=== PATIENT | male | born 1935 | race Caucasian/White ===

== ENCOUNTER 2019-02-28 10:04 | Day surgery (SDC) | payer MEDICARE ==
[2019-02-26 11:49] VITALS: BMI 24.3
[~2019-02-28 10:04] MED LIST: LACTATED RINGERS 1,000 ML IV SCH; LIDOCAINE 1% 20 ML VIAL (10MG/ML) FOR IV START INTRADERMA PRN; MOXIFLOXACIN HCL 0.5% DROPS 3 ML BTL OP NR; PILOCARPINE 2% OPHTH DROPS 15 ML BTL OP NR; TETRACAINE 0.5% OPHTH (PF) DROPS 4 ML BTL OP NR; TIMOLOL 0.5% OPHTH DROPS 5 ML BTL OP NR
[2019-02-28 10:49] VITALS: RESP 16; TEMP 98
[2019-02-28] MEDS ORDERED: MIDAZOLAM 2 MG/2 ML VIAL ONE (11:48)
[2019-02-28] MEDS ORDERED: fentaNYL (PF) 50 MCG/ML 2 ML AMP ONE (11:48)
[2019-02-28] MEDS ORDERED: BALANCED SALT IRRIG SOLN COMB2 15 ML IRRIG.SOLN IRRIGATION ONE (11:56)
[2019-02-28] MEDS ORDERED: TRYPAN BLUE 0.06% SYRINGE 0.5 ML SYRINGE INTRAOCULA ONE (11:57)
[2019-02-28] MEDS ORDERED: LIDOCAINE (PF) 10 MG/ML 5ML AMP SQ ONE (12:01)
--- NOTE | 2019-02-28 12:27 | P.OP ---
Date of Procedure: 02/28/19 Preoperative Diagnosis: POAG severe stage Postoperative Diagnosis: same Procedure(s) Performed: goniotomy right eye Implants: none Anesthesia: MAC Surgeon: Ian Parada Pathology: none sent Condition: stable Disposition: same day Indications for Procedure: poorly controlled glaucoma Operative Findings: no complications
[2019-02-28 12:32] VITALS: BP 156/61
[2019-02-28 12:43] VITALS: PULSE 66
--- NOTE | 2019-02-28 22:05 | OP ---
OPERATIVE REPORT DATE OF SURGERY: February 28, 2019. PROCEDURE PERFORMED: Goniotomy of the right eye. PREOPERATIVE DIAGNOSIS: Primary open-angle glaucoma, severe stage. POSTOPERATIVE DIAGNOSIS: Primary open angle glaucoma, severe stage. SURGEON: Dr. Ian Parada. ANESTHESIA: Topical. ESTIMATED BLOOD LOSS: Approximately 5 mL. SPECIMEN: Taken none. NARRATIVE: After obtaining the appropriate consent, the patient was brought to the operating room. There he was placed under cardiac monitoring, prepped and draped in the usual sterile manner. He was approached from his right temporal side. A single 2.5 mm keratome incision was made at the 9 o'clock position. Through this opening, 1% Xylocaine MPF 50/50 mix with balanced salt solution was injected into the anterior chamber. This was followed by installation of trypan blue which was left in place for approximately 1 minute. This was irrigated away with balanced salt solution and Viscoat was used to stabilize the anterior chamber as well as lubricate the epithelial surface of the cornea. The patient was then asked to rotate his head approximately 45 degrees to his left and using a gonio prism the trabecular meshwork was identified. A [employer] dual blade goniotomy knife was used to remove the trabecular meshwork utilizing a gold and meet method. A moderate amount of blood was identified and irrigated from the anterior chamber with the irrigation aspiration as well as removing the Viscoat from the anterior chamber. The temporal incision demonstrated some incompetence and therefore a single 10-0 nylon suture in an X fashion was used to ensure proper closure without leakage from the incision site. The eye was brought to approximately 30 mmHg by palpation with balanced salt solution which was instilled through the temporal incision. He then received 2 drops of 0.5% timolol followed by 2 drops of 1% pilocarpine as well as 2 drops of moxifloxacin. He was then lightly patched and shielded in the usual manner. There were no complications from the procedure. He tolerated the procedure well, was returned to outpatient recovery in good condition. MMODL / IJN: [id number] /
== END 2019-02-28 13:58 | disposition home or self-care (01) ==
LOC: OR 10:04
PROVIDERS: ATTEND Ophthalmology
DX: H40.1113 Primary open-angle glaucoma, right eye, severe stage (principal); H35.30 Unspecified macular degeneration; H47.393 Other disorders of optic disc, bilateral; H04.123 Dry eye syndrome of bilateral lacrimal glands; I10 Essential (primary) hypertension; E78.00 Pure hypercholesterolemia, unspecified; F32.9 Major depressive disorder, single episode, unspecified; M10.9 Gout, unspecified; E78.5 Hyperlipidemia, unspecified; F41.9 Anxiety disorder, unspecified; R41.3 Other amnesia; Z96.1 Presence of intraocular lens; Z85.820 Personal history of malignant melanoma of skin; Z79.899 Other long term (current) drug therapy; Z87.891 Personal history of nicotine dependence; Z98.890 Other specified postprocedural states
CPT/HCPCS: 65820; J2250; J2001; J3010

== ENCOUNTER → 2020-04-29 | Outpatient (CLI) | payer MEDICARE, BC ==
--- NOTE | 2020-04-29 10:34 | CT ---
EXAMINATION TYPE: CT abdomen pelvis w con DATE OF EXAM: 04/29/2020 COMPARISON: None. HISTORY: follow up prostate cancer CT DLP: 840 mGycm, Automated Exposure Control for Dose Reduction was Utilized. CONTRAST: CT scan of the abdomen and pelvis is performed with oral and with IV Contrast, patient injected with 80 mL of Isovue 300. FINDINGS: LUNG BASES: No significant abnormality is appreciated. LIVER/GB: No significant abnormality is appreciated. PANCREAS: No significant abnormality is seen. SPLEEN: No significant abnormality is seen. ADRENALS: No significant abnormality is seen. KIDNEYS: Symmetric cortical medullary uptake and excretion without hydronephrosis seen bilaterally. T here are simple appearing thin-walled cysts upper pole available both kidneys. BOWEL: Oral contrast reaches level of the rectum. No suspicious small or large bowel dilatation. PROSTATE/SEMINAL VESICLES: Surgical clips bilateral pelvis. Prostate not well seen and may be surgica lly absent. LYMPH NODES: No greater than 1cm abdominal or pelvic lymph nodes are appreciated. OSSEOUS STRUCTURES: Metallic hardware from bilateral hip arthroplasty causes streak artifact limiting evaluation of pelvic structures. Grade 1 retrolisthesis L2 on L3 and L3 on L4. Posterior disc hernia tions L2-L3 and L4-L5 levels effaces anterior thecal sac sagittal image 35. Multilevel facet arthropa thy mid to lower lumbar spine. Moderate multilevel spurring in the spine. Underlying scoliotic curv ature in the lumbar spine. OTHER: There is ventral wall incisional hernia containing nondilated contrast filled small bowel loop coronal image 8 just below small fat-containing umbilical hernia. There is moderate atherosclerotic and ectatic abdominal aorta without definitive greater than 3.0 cm aneurysm. IMPRESSION: No suspicious mass or adenopathy to suggest metastatic disease.
--- NOTE | 2020-04-29 14:09 | NM ---
EXAMINATION TYPE: NM bone scan whole body DATE OF EXAM: 04/29/2020 COMPARISON: 04/29/2000 HISTORY: Prostate cancer Delayed whole-body scanning was performed following the injection of 23.3 mCi Tc 99m MDP. Images acq uired 4.5 hours post injection. FINDINGS: Abnormal uptake involving the posterior left mid rib cage and anterior left lower rib cage noted. Foc al area of increased uptake involving the anterior lower right rib cage. Abnormal uptake involving th e neck on the right. Abnormal uptake seen throughout the lower and mid lumbar spine. Abnormal uptake involving the shoulders noted. IMPRESSION: 1. Abnormal uptake involving the rib cage appears sclerotic on recent CT scan and suggestive of metas tases. 2. Abnormal uptake involving the vertebral column compatible with severe multilevel degenerative disc disease. 3. Nonspecific uptake involving the cervical spine. Correlate with x-ray as clinically warranted.
== END | disposition home or self-care (01) ==
LOC: RADCTMAIN 08:08
PROVIDERS: ATTEND Urology
DX: C61 Malignant neoplasm of prostate (principal); R93.7 Abnormal findings on diagnostic imaging of other parts of musculoskeletal system
CPT/HCPCS: 82565; 84520; 74177; 36415; 78306; A9503; Q9967

== ENCOUNTER 2021-11-02 14:04 | Emergency (ER) | payer MEDICARE ==
[2021-11-02 14:12] VITALS: RESP 18; TEMP 97.9
--- NOTE | 2021-11-02 15:55 | ED ---
Altered Mental Status HPI - General Source: patient, family, RN notes reviewed Mode of arrival: ambulatory - History of Present Illness MD Complaint: altered mental status, weakness Onset/Timin -: days(s) <Julianne Hsu - Last Filed: 11/02/21 21:06> <Rickey Jaime - Last Filed: 11/04/21 00:51> - General Chief Complaint: Altered Mental Status Stated Complaint: AMS Time Seen by Provider: 11/02/21 15:28 - History of Present Illness Initial Comments: This is an 86-year-old male who presents to the emergency department for altered mental status and weakness. Patient's and son state for the last 2-3 days, he has seemed very fatigued and unlike himself. He does have a past medical history of dementia. Over these last 2-3 days, he has been sleeping much more than normal and having uncontrolled bowel and bladder movements. Overall he does not seem like himself. His called the office of his primary care provider, Dr. Miner, who instructed the patient to come to the emergency department. Patient currently denies any pain, but states that he does feel weak. Denies any fevers, chills, sore throat, cough, dyspnea, chest pain, palpitations, abdominal pain, nausea, vomiting, diarrhea, back pain, or headaches. (Julianne Hsu) - Related Data Home Medications Medication Instructions Recorded Confirmed allopurinoL [Zyloprim] 100 mg PO DAILY 02/26/19 11/02/21 Losartan/Hydrochlorothiazide 1 tab PO DAILY 11/02/21 11/02/21 [Hyzaar 100-12.5 Tablet] Metoprolol Succinate (ER) [Toprol 50 mg PO BID 11/02/21 11/02/21 Xl] Rivastigmine Tartrate [Exelon] 3 mg PO BID 11/02/21 11/02/21 Timolol 0.5% Ophth Soln [Timoptic 1 drop BOTH EYES BID 11/02/21 11/02/21 0.5% Ophth Soln] Previous Rx's Medication Instructions Recorded Nirmatrelvir/Ritonavir [Paxlovid 1 each PO BID 5 Days #10 each 11/02/21 150-100 mg Pack (Eua)] Allergies Allergy/AdvReac Type Severity Reaction Status Date / Time No Known Allergies Allergy Verified 11/02/21 17:50 Review of Systems ROS Other: All systems not noted in ROS Statement are negative. <Julianne Hsu - Last Filed: 11/02/21 21:06> ROS Other: All systems not noted in ROS Statement are negative. <Rickey Jaime - Last Filed: 11/04/21 00:51> ROS Statement: Those systems with pertinent positive or pertinent negative responses have been documented in the HPI. Past Medical History Past Medical History: Cancer, Dementia, Hypertension Additional Past Medical History / Comment(s): prostate cancer History of Any Multi-Drug Resistant Organisms: None Reported Past Surgical History: Bowel Resection, Orthopedic Surgery, Prostate Surgery Past Psychological History: No Psychological Hx Reported Smoking Status: Former smoker Past Alcohol Use History: Rare Past Drug Use History: None Reported <Julianne Hsu - Last Filed: 11/02/21 21:06> General Exam General appearance: alert, in no apparent distress Head exam: Present: atraumatic, normocephalic, normal inspection Respiratory exam: Present: normal lung sounds bilaterally. Absent: respiratory distress, wheezes, rales, rhonchi, stridor Cardiovascular Exam: Present: normal rhythm, tachycardia. Absent: systolic murmur, diastolic murmur GI/Abdominal exam: Present: soft, hyperactive bowel sounds. Absent: distended, tenderness, guarding, rebound, rigid Neurological exam: Present: alert, oriented X3, CN II-XII intact Psychiatric exam: Present: normal affect, normal mood Skin exam: Present: warm, dry, intact, normal color. Absent: rash <Julianne Hsu - Last Filed: 11/02/21 21:06> Course Vital Signs 11/02/21 11/02/21 11/02/21 14:06 17:00 18:41 Temperature 97.9 F Pulse Rate 123 H 76 73 Respiratory 18 18 18 Rate Blood Pressure 119/77 140/78 O2 Sat by Pulse 92 L 93 L 94 L Oximetry Medical Decision Making - Lab Data Result diagrams: 11/02/21 15:55 11/02/21 15:55 - Radiology Data Radiology results: report reviewed, image reviewed <Julianne Hsu - Last Filed: 11/02/21 21:06> - Lab Data Result diagrams: 11/02/21 15:55 11/02/21 15:55 <Rickye Jaime - Last Filed: 11/04/21 00:51> - Medical Decision Making This is an 86-year-old male who presents to the emergency department for weakness. Chest x-ray obtained revealing no acute cardiopulmonary process. Urinalysis negative for signs of infection. Patient positive for COVID-19. Patient has an elevated troponin, most likely secondary to COVID-19. EKG reveals no signs of ischemia and the patient is not complaining of any chest pain or shortness of breath, additionally, the patient has no history of cardiac or pulmonary problems. These findings were discussed with the family, in that if they do not feel like they're able to care for him in his current state, we can admit him for observation. Patient requests discharge home and his family states that they're able to care for him. Patient's medication list reviewed, and he does not have any contraindications to Paxlovid. Prescription for Paxlovid provided. He is instructed to quarantine for 5 days and practice extra precautions for an additional 5 days, including always wearing a mask around others and avoiding travel. Return precautions reviewed in depth, the patient is instructed to return to the emergency department with any new, worsening, or concerning symptoms. Patient verbalized understanding. This case was discussed in detail with the attending ED physician. Presentation, findings, and treatment plan discussed in detail as well. (Julianne Hsu) Patient's family would like to take the patient home. Troponin is likely secondary to the covid 19 infection, as the patient has no chest pain and no signs of acs on ekg. Joint decision making was made to discharge the patient home with strict return precautions. Precautions were discussed. (Rickey Jaime) - Lab Data Lab Results 11/02/21 11/02/21 11/02/21 Range/Units 15:55 15:55 15:55 WBC 6.7 (3.8-10.6) k/uL RBC 4.34 (4.30-5.90) m/uL Hgb 13.8 (13.0-17.5) gm/dL Hct 40.9 (39.0-53.0) % MCV 94.3 (80.0-100.0) fL MCH 31.7 (25.0-35.0) pg MCHC 33.6 (31.0-37.0) g/dL RDW 12.9 (11.5-15.5) % Plt Count 161 (150-450) k/uL MPV 7.5 Neutrophils % 76 % Lymphocytes % 11 % Monocytes % 11 % Eosinophils % 0 % Basophils % 1 % Neutrophils # 5.1 (1.3-7.7) k/uL Lymphocytes # 0.7 L (1.0-4.8) k/uL Monocytes # 0.7 (0-1.0) k/uL Eosinophils # 0.0 (0-0.7) k/uL Basophils # 0.0 (0-0.2) k/uL PT 11.8 (9.0-12.0) sec INR 1.1 (<1.2) APTT 25.0 (22.0-30.0) sec Sodium 133 L (137-145) mmol/L Potassium 3.4 L (3.5-5.1) mmol/L Chloride 95 L (98-107) mmol/L Carbon Dioxide 22 (22-30) mmol/L Anion Gap 16 mmol/L BUN 25 H (9-20) mg/dL Creatinine 1.19 (0.66-1.25) mg/dL Est GFR (CKD-EPI)AfAm 64 (>60 ml/min/1.73 sqM) Est GFR (CKD-EPI)NonAf 55 (>60 ml/min/1.73 sqM) Glucose 121 H (74-99) mg/dL Calcium 9.2 (8.4-10.2) mg/dL Magnesium 1.7 (1.6-2.3) mg/dL Total Bilirubin 0.6 (0.2-1.3) mg/dL AST 41 (17-59) U/L ALT 14 (4-49) U/L Alkaline Phosphatase 276 H (38-126) U/L Troponin I (0.000-0.034) ng/mL Total Protein 6.7 (6.3-8.2) g/dL Albumin 4.1 (3.5-5.0) g/dL Urine Color Urine Appearance (Clear) Urine pH (5.0-8.0) Ur Specific [employer] (1.001-1.035) Urine Protein (Negative) Urine Glucose (UA) (Negative) Urine Ketones (Negative) Urine Blood (Negative) Urine Nitrite (Negative) Urine Bilirubin (Negative) Urine Urobilinogen (<2.0) mg/dL Ur Leukocyte Esterase (Negative) Urine RBC (0-5) /hpf Urine WBC (0-5) /hpf Ur Squamous Epith Cells (0-4) /hpf Urine Bacteria (None) /hpf Hyaline Casts (0-2) /lpf Urine Mucus (None) /hpf Coronavirus (PCR) (Not Detectd) 11/02/21 11/02/21 11/02/21 Range/Units 15:55 15:55 17:00 WBC (3.8-10.6) k/uL RBC (4.30-5.90) m/uL Hgb (13.0-17.5) gm/dL Hct (39.0-53.0) % MCV (80.0-100.0) fL MCH (25.0-35.0) pg MCHC (31.0-37.0) g/dL RDW (11.5-15.5) % Plt Count (150-450) k/uL MPV Neutrophils % % Lymphocytes % % Monocytes % % Eosinophils % % Basophils % % Neutrophils # (1.3-7.7) k/uL Lymphocytes # (1.0-4.8) k/uL Monocytes # (0-1.0) k/uL Eosinophils # (0-0.7) k/uL Basophils # (0-0.2) k/uL PT (9.0-12.0) sec INR (<1.2) APTT (22.0-30.0) sec Sodium (137-145) mmol/L Potassium (3.5-5.1) mmol/L Chloride (98-107) mmol/L Carbon Dioxide (22-30) mmol/L Anion Gap mmol/L BUN (9-20) mg/dL Creatinine (0.66-1.25) mg/dL Est GFR (CKD-EPI)AfAm (>60 ml/min/1.73 sqM) Est GFR (CKD-EPI)NonAf (>60 ml/min/1.73 sqM) Glucose (74-99) mg/dL Calcium (8.4-10.2) mg/dL Magnesium (1.6-2.3) mg/dL Total Bilirubin (0.2-1.3) mg/dL AST (17-59) U/L ALT (4-49) U/L Alkaline Phosphatase (38-126) U/L Troponin I 0.069 H* (0.000-0.034) ng/mL Total Protein (6.3-8.2) g/dL Albumin (3.5-5.0) g/dL Urine Color Yellow Urine Appearance Clear (Clear) Urine pH 5.5 (5.0-8.0) Ur Specific [employer] 1.022 (1.001-1.035) Urine Protein 1+ H (Negative) Urine Glucose (UA) Negative (Negative) Urine Ketones 1+ H (Negative) Urine Blood Negative (Negative) Urine Nitrite Negative (Negative) Urine Bilirubin Negative (Negative) Urine Urobilinogen <2.0 (<2.0) mg/dL Ur Leukocyte Esterase Negative (Negative) Urine RBC 1 (0-5) /hpf Urine WBC 1 (0-5) /hpf Ur Squamous Epith Cells 1 (0-4) /hpf Urine Bacteria Rare H (None) /hpf Hyaline Casts 37 H (0-2) /lpf Urine Mucus Occasional H (None) /hpf Coronavirus (PCR) Detected A (Not Detectd) - EKG Data EKG Comments: Junctional tachycardia. ST deviation and moderate T-wave abnormality. Ventricular rate 112 bpm, [place] interval 119 ms, QRS duration 77 ms, QTC 381 ms. (Julianne Hsu) Disposition Is patient prescribed a controlled substance at d/c from ED?: No <Julianne Hsu - Last Filed: 11/02/21 21:06> <Rickey Jaime - Last Filed: 11/04/21 00:51> Clinical Impression: COVID-19 Disposition: HOME SELF-CARE Instructions (If sedation given, give patient instructions): COVID-19 (Coronavirus Disease 2019) (ED), Safely Care for Someone Who Has COVID-19 (ED), How to Recover from COVID-19 at Home (ED) Additional Instructions: Return to the emergency department with any new, worsening, or concerning symptoms. Take the Paxlovid as prescribed for 5 days. You will need to quarantine for 5 days and practice extra precautions for an additional 5 days, including always wearing a mask around others and avoiding travel. Make sure that you remain well-hydrated and get plenty of rest. Prescriptions: Nirmatrelvir/Ritonavir [Paxlovid 150-100 mg Pack (Eua)] 1 each PO BID 5 Days #10 each Referrals: Deandre Miner MD [Primary Care Provider] - 1-2 days
--- NOTE | 2021-11-02 16:18 | XR ---
EXAMINATION TYPE: XR chest 2V DATE OF EXAM: 11/02/2021 COMPARISON: NONE HISTORY: Altered mental status and weakness. TECHNIQUE: Frontal and lateral views of the chest are obtained. FINDINGS: There is chronic parenchymal change bilaterally without suspicious focal airspace opacity, pleural effusion, or pneumothorax seen. The cardiac silhouette size is within normal limits with at herosclerotic change in the thoracic aorta noted. Old fractures of the posterolateral right third thr ough sixth ribs is present. Possible 1.2 cm lateral left mid lung nodule projecting over the anterio r left fourth rib. Multilevel spurring of the thoracic spine. High riding humeral heads suggest chron ic rotator cuff tears. IMPRESSION: Chronic changes without acute pulmonary process. Possible lateral left mid lung nodule. Advise nonemergent chest CT follow-up to further evaluate.
[2021-11-02 16:32] LABS: Basophils % (A) 1 %; Eosinophils % (A) 0 %; HCT 40.9 % (39.0-53.0); HGB 13.8 gm/dL (13.0-17.5); Lymphocytes # (A) 0.7 k/uL (1.0-4.8); Lymphocytes % (A) 11 %; MCH 31.7 pg (25.0-35.0); MCHC 33.6 g/dL (31.0-37.0); MCV 94.3 fL (80.0-100.0); Mean Platelet Volume 7.5; Monocytes # (A) 0.7 k/uL (0-1.0); Monocytes % (A) 11 %; Neutrophils # (A) 5.1 k/uL (1.3-7.7); Neutrophils % (A) 76 %; Platelet Count 161 k/uL (150-450); RBC 4.34 m/uL (4.30-5.90); RDW 12.9 % (11.5-15.5); WBC 6.7 k/uL (3.8-10.6)
[2021-11-02 16:34] LABS: Albumin 4.1 g/dL (3.5-5.0); Calcium 9.2 mg/dL (8.4-10.2); Magnesium 1.7 mg/dL (1.6-2.3); Potassium 3.4 mmol/L (3.5-5.1); Total Bilirubin 0.6 mg/dL (0.2-1.3); Total Protein 6.7 g/dL (6.3-8.2)
[2021-11-02 16:39] LABS: INR 1.1 (<1.2); Prothrombin Time 11.8 sec (9.0-12.0)
[2021-11-02] MEDS ORDERED: SODIUM CHLORIDE 0.9% 1,000 ML IV STA (17:10)
[2021-11-02 17:14] VITALS: BP 140/78
[2021-11-02 17:41] LABS: Appearance,Urine Clear (Clear); Bacteria,Urine Rare /hpf; Bilirubin,Urine Negative (Negative); Blood,Urine Negative (Negative); Color,Urine Yellow; Glucose,Urine (UA) Negative (Negative); Hyaline Casts,Urine 37 /lpf (0-2); Ketones,Urine 1+ (Negative); Leukocyte Esterase,Urine Negative (Negative); Mucus,Urine Occasional /hpf; Nitrite,Urine Negative (Negative); PH, Urine 5.5 (5.0-8.0); Protein,Urine 1+ (Negative); RBC,Urine 1 /hpf (0-5); Specific Gravity,Urine 1.022 (1.001-1.035); Squamous Epithelial Cell,Urine 1 /hpf (0-4); Urobilinogen,Urine <2.0 mg/dL (<2.0); WBC,Urine 1 /hpf (0-5)
[2021-11-02 18:43] VITALS: PULSE 73
== END 2021-11-02 18:43 | disposition home or self-care (01) ==
LOC: EC 14:04
DX: U07.1 COVID-19 (principal); I10 Essential (primary) hypertension; F03.90 Unspecified dementia, unspecified severity, without behavioral disturbance, psychotic disturbance, mood disturbance, and anxiety; Z87.891 Personal history of nicotine dependence
CPT/HCPCS: 36415; 71046; 80053; 81001; 83735; 84484; 85025; 85610; 85730; 87635; 93005; 96360; 99285

== ENCOUNTER 2022-11-11 10:36 | Inpatient (IN) | payer MEDICARE ==
--- NOTE | 2022-11-11 13:07 | XR ---
EXAMINATION TYPE: XR Hip RT and AP Pelvis DATE OF EXAM: 11/11/2022 COMPARISON: NONE HISTORY: Pain TECHNIQUE: A single AP view of the pelvis is obtained. Two views of the right hip are obtained. FINDINGS: There is postsurgical change involving the right hip. There is diffuse osseous sclerosis c ompatible with widespread bony metastasis. Degenerative change of the spine. No definite acute fractu re. Surgical clips in the pelvis are noted. Vascular calcifications are seen. IMPRESSION: 1. Diffuse bony metastases. No definite acute fracture.
--- NOTE | 2022-11-11 13:10 | CT ---
EXAMINATION TYPE: CT brain ruby gonzales con DATE OF EXAM: 11/11/2022 COMPARISON: None HISTORY: AMS, fall CT DLP: 1603.[address] of the brain was performed. The ventricles, basal cisterns and sulci overlying the cerebral convexities demonstrate enlargement. There is no evidence for intracranial hemorrhage or sulcal effacement. There is decreased attenuatio n about the periventricular white matter and deep white matter of both cerebral hemispheres, compatib le with chronic small vessel ischemia. No mass effects are seen. If symptoms persist consider MRI. Osseous calvarium is intact. Sclerosis throughout the osseous calvarium compatible with metastatic di sease. IMPRESSION: 1. Age related atrophic and chronic small vessel ischemic change without acute intracranial process seen at this time. 2. 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 CT Cervical Spine: Unenhanced CT of the cervical spine was performed with bone and soft tissue window settings submitted . Coronal and sagittal reconstruction is obtained. There is normal alignment and prevertebral soft tissues. No evidence for acute cervical fracture . Severe Scattered degenerative disc disease and spondylosis. Sclerotic bony metastases noted throughou t. Moderate right-sided pleural effusion is partially imaged. IMPRESSION: 1. No evidence for acute fracture or subluxation of the cervical spine. 2. Findings compatible with bony metastatic disease.
--- NOTE | 2022-11-11 13:15 | CT ---
EXAMINATION TYPE: CT lumbar spine wo con DATE OF EXAM: 11/11/2022 1:04 PM COMPARISON: CT abdomen and pelvis 04/29/2020 HISTORY: pain from fall CT DLP: 699.1 mGycm Automated exposure control for dose reduction was used. Unenhanced CT of the lumbar spine was performed. Bone and soft tissue window settings are submitted as well as coronal and sagittal reconstructions. There is diffuse mixed lytic and blastic changes of all osseous structures compatible with widespread bone metastases. Hypertrophic arthropathy of the SI joints. There are bilateral sizable pleural effusions. Atherosclerotic change of aorta. Hypodensity within th e bilateral kidney measures fluid attenuation compatible with simple cyst. L1-L2: Normal disc space height. No disc herniation protrusion or central stenosis. No facet joint arthropathy. No evidence for foraminal encroachment. L2-L3: Retrolisthesis with circumferential disc bulging and ligamentum flavum hypertrophy. Vacuum dis c compatible severe degenerative disc disease. There is moderate canal stenosis and bilateral foramin al approach. L3-L4: Severe degenerative disc disease with retrolisthesis. Diffuse disc bulging, facet arthropathy and ligamentum hypertrophy with moderate to severe canal stenosis and bilateral foraminal approach. L4-L5: Broad-based disc protrusion or herniation with severe canal stenosis and bilateral foraminal e ncroachment. Facet arthropathy. L5-S1: Central disc bulging but no obvious canal stenosis. Mild neural foraminal. IMPRESSION: 1. Diffuse widespread bony metastasis with mixed Lytic and blastic changes involving virtually all osseous structures. 2. Multilevel disc protrusion or herniation with facet arthropathy and ligamentum flavum hypertrophy resulting in canal stenosis most marked at levels L2-3, L3-4 and L4-5. 3. Bilateral pleural effusion.
[2022-11-11] MEDS ORDERED: NALOXONE 0.4 MG/ML 1 ML VIAL IV PRN (15:05)
--- NOTE | 2022-11-11 15:05 | ED ---
Fall HPI - General Chief Complaint: Fall Stated Complaint: hip pain Time Seen by Provider: 11/11/22 12:07 Source: patient Mode of arrival: wheelchair - History of Present Illness Initial Comments: 87-year-old male presents to the emergency department from Dr. Miner's office. Patient had a fall last night due to weakness in his lower extremities. EMS had to come to the house to lift the patient up however he refused to go to the hospital. is power of civil litigation attorney. States that he has not been able to get up with his walker today due to the right hip and lower back pain. He was nonambulator and Dr. Miner's office. He does have known prostate cancer and concern was for fracture as well as inability to ambulate. Patient does have bilateral hip replacements. No other alleviating, precipitating or modifying factors - Related Data Home Medications Medication Instructions Recorded Confirmed ALPRAZolam [Xanax] 0.25 mg PO BID PRN 11/11/22 11/11/22 Losartan/Hydrochlorothiazide 1 tab PO DAILY 11/11/22 11/11/22 [Losartan-Hctz 100-12.5 mg Tab] Metoprolol Succinate (ER) [Toprol 25 mg PO HS 11/11/22 11/11/22 Xl] traMADol HCL 25 mg PO Q6H 11/11/22 11/11/22 Allergies Allergy/AdvReac Type Severity Reaction Status Date / Time No Known Allergies Allergy Verified 11/11/22 15:02 Review of Systems ROS Statement: Those systems with pertinent positive or pertinent negative responses have been documented in the HPI. ROS Other: All systems not noted in ROS Statement are negative. Past Medical History Past Medical History: Cancer, Dementia, Hypertension, Prostate Disorder Additional Past Medical History / Comment(s): prostate cancer History of Any Multi-Drug Resistant Organisms: None Reported Past Surgical History: Bowel Resection, Joint Replacement, Orthopedic Surgery, Prostate Surgery Additional Past Surgical History / Comment(s): bilateral hips Past Psychological History: No Psychological Hx Reported Smoking Status: Former smoker Past Alcohol Use History: None Reported Past Drug Use History: None Reported General Exam Limitations: altered mental status (Dementia) General appearance: alert, in no apparent distress Head exam: Present: atraumatic, normocephalic, normal inspection Eye exam: Present: normal appearance, PERRL, EOMI. Absent: scleral icterus, conjunctival injection, periorbital swelling ENT exam: Present: normal exam, mucous membranes moist Neck exam: Present: normal inspection. Absent: tenderness, meningismus, lymphadenopathy Respiratory exam: Present: normal lung sounds bilaterally. Absent: respiratory distress, wheezes, rales, rhonchi, stridor Cardiovascular Exam: Present: regular rate, normal rhythm, normal heart sounds. Absent: systolic murmur, diastolic murmur, rubs, gallop, clicks GI/Abdominal exam: Present: soft, normal bowel sounds. Absent: distended, tenderness, guarding, rebound, rigid Extremities exam: Present: full ROM, tenderness (Subjective tenderness to p alpation of the right hip), normal capillary refill. Absent: pedal edema, joint swelling, calf tenderness Back exam: Present: normal inspection Neurological exam: Present: alert, CN II-XII intact, other (Oriented to self) Psychiatric exam: Present: normal affect, normal mood Skin exam: Present: warm, dry, intact, normal color. Absent: rash Course Vital Signs 11/11/22 11/11/22 11/11/22 11:20 11:48 13:51 Temperature 97.7 F 97.5 F L Pulse Rate 84 68 76 Respiratory 18 16 20 Rate Blood Pressure 111/63 110/60 112/52 O2 Sat by Pulse 93 L 95 96 Oximetry 11/11/22 11/11/22 11/11/22 16:00 17:00 18:30 Temperature Pulse Rate 75 78 60 Respiratory 16 16 16 Rate Blood Pressure 110/60 110/68 105/60 O2 Sat by Pulse 98 98 99 Oximetry Medical Decision Making - Medical Decision Making Was pt. sent in by a medical professional or institution (, PA, SENIOR CATEGORY MANAGER, urgent care, hospital, or fpc...) When possible be specific @ -Yes patient was sent in by Dr. Miner's office Did you speak to anyone other than the patient for history (EMS, parent, family, police, friend...)? What history was obtained from this source @ -Spoke with Dr. Miner, and son Did you review nursing and triage notes (agree or disagree)? Why? @ -I reviewed and agree with nursing and triage notes Were old charts reviewed (outside hosp., previous admission, EMS record, old EKG, old radiological studies, urgent care reports/EKG's, fpc records)? Report findings @ -No old charts were reviewed Differential Diagnosis (chest pain, altered mental status, abdominal pain women, abdominal pain men, vaginal bleeding, weakness, fever, dyspnea, syncope, headache, dizziness, GI bleed, back pain, seizure, CVA, palpatations, mental health, musculoskeletal)? @ -Differential Musculoskeletal Muscular strain, contusion, ligament sprain, fracture, arthritis, septic arthritis, bursitis, cellulitis, muscle spasm, nerve compression, DVT, arterial occlusion, herpes zoster, electrolyte abnormality, tumor.... This is not meant to be in all inclusive list EKG interpreted by me (3pts min.). @ -Not done X-rays interpreted by me (1pt min.). @ -Yes and demonstrates no acute fracture. Significant prostate metastasis CT interpreted by me (1pt min.). @ -Yes and no acute intracranial process U/S interpreted by me (1pt. min.). @ -None done What testing was considered but not performed or refused? (CT, X-rays, U/S, labs)? Why? @ -None What meds were considered but not given or refused? Why? @ -None Did you discuss the management of the patient with other professionals (professionals i.e. , PA, SENIOR CATEGORY MANAGER, lab, RT, psych nurse, social media marketer, hand edge bander, teacher, founder and chief technical officer, immigration case worker)? Give summary @ -Spoke with Dr. Julian will admit the patient as family can no longer care for him Was smoking cessation discussed for >3mins.? @ -No Was critical care preformed (if so, how long)? @ -No Were there social determinants of health that impacted care today? How? (Homelessness, low income, unemployed, alcoholism, drug addiction, transportation, low edu. Level, literacy, decrease access to med. care, halfway, rehab)? @ -No Was there de-escalation of care discussed even if they declined (Discuss DNR or withdrawal of care, Hospice)? DNR status @ -No What co-morbidities impacted this encounter? (DM, HTN, Smoking, COPD, CAD, Cancer, CVA, ARF, Chemo, Hep., AIDS, mental health diagnosis, sleep apnea, morbid obesity)? @ -Dementia, prostate cancer with bony metastases Was patient admitted / discharged? Hospital course, mention meds given and route, prescriptions, significant lab abnormalities, going to OR and other pertinent info. @ -Admitted. Upon arrival patient placed into bed 18. History and physical exam was performed. X-ray is performed of the patient's right hip and pelvis. CT performed of his head and cervical spine as well as his lumbar spine. No acute fractures from falling. Discuss the results with the family. They no longer can care for the patient at home due to his profound weakness in his lower extremities. Patient will be admitted to Dr. Julian with case management, PT and OT on consult. Family was agreeable to this and patient was taken to the floor in stable condition Undiagnosed new problem with uncertain prognosis? @ -No Drug Therapy requiring intensive monitoring for toxicity (Heparin, Nitro, Insulin, Cardizem)? @ -No Were any procedures done? @ -No Diagnosis/symptom? @ -Acute fall, acute lower extremity weakness, right hip pain, lumbar back pain, prostate cancer with bony metastases Acute, or Chronic, or Acute on Chronic? @ -Acute Uncomplicated (without systemic symptoms) or Complicated (systemic symptoms)? @ -Complicated Side effects of treatment? @ -No Exacerbation, Progression, or Severe Exacerbation? @ -No Poses a threat to life or bodily function? How? (Chest pain, [place], [place], pneumonia, PE, COPD, DKA, ARF, appy, cholecystitis, CVA, Diverticulitis, Homicidal, Suicidal, threat to staff... and all critical care pts) @ -No - Lab Data Result diagrams: 11/12/22 06:34 11/12/22 06:34 Lab Results 11/11/22 11/11/22 Range/Units 15:04 15:04 WBC 4.2 (3.8-10.6) k/uL RBC 3.21 L (4.30-5.90) m/uL Hgb 10.1 L (13.0-17.5) gm/dL Hct 29.4 L (39.0-53.0) % MCV 91.7 (80.0-100.0) fL MCH 31.6 (25.0-35.0) pg MCHC 34.5 (31.0-37.0) g/dL RDW 15.7 H (11.5-15.5) % Plt Count 207 (150-450) k/uL MPV 7.1 Neutrophils % 65 % Lymphocytes % 21 % Monocytes % 10 % Eosinophils % 1 % Basophils % 0 % Neutrophils # 2.7 (1.3-7.7) k/uL Lymphocytes # 0.9 L (1.0-4.8) k/uL Monocytes # 0.4 (0-1.0) k/uL Eosinophils # 0.1 (0-0.7) k/uL Basophils # 0.0 (0-0.2) k/uL Sodium 136 L (137-145) mmol/L Potassium 3.8 (3.5-5.1) mmol/L Chloride 103 (98-107) mmol/L Carbon Dioxide 23 (22-30) mmol/L Anion Gap 10 mmol/L BUN 20 (9-20) mg/dL Creatinine 1.02 (0.66-1.25) mg/dL Est GFR (CKD-EPI)AfAm 76 (>60 ml/min/1.73 sqM) Est GFR (CKD-EPI)NonAf 66 (>60 ml/min/1.73 sqM) Glucose 107 H (74-99) mg/dL Calcium 8.4 (8.4-10.2) mg/dL Total Bilirubin 0.5 (0.2-1.3) mg/dL AST 38 (17-59) U/L ALT 11 (4-49) U/L Alkaline Phosphatase 789 H (38-126) U/L Total Protein 5.3 L (6.3-8.2) g/dL Albumin 3.1 L (3.5-5.0) g/dL Disposition Clinical Impression: Fall, Right hip pain, Prostate cancer metastatic to bone Disposition: ADMITTED IP TO THIS [facility] Condition: Fair Is patient prescribed a controlled substance at d/c from ED?: No Time of Disposition: 15:05 Decision to Admit Reason: Admit from EC Decision Date: 11/11/22 Decision Time: 15:05
[2022-11-11 15:31] LABS: Basophils % (A) 0 %; Eosinophils # (A) 0.1 k/uL (0-0.7); Eosinophils % (A) 1 %; HCT 29.4 % (39.0-53.0); HGB 10.1 gm/dL (13.0-17.5); Lymphocytes # (A) 0.9 k/uL (1.0-4.8); Lymphocytes % (A) 21 %; MCH 31.6 pg (25.0-35.0); MCHC 34.5 g/dL (31.0-37.0); MCV 91.7 fL (80.0-100.0); Mean Platelet Volume 7.1; Monocytes # (A) 0.4 k/uL (0-1.0); Monocytes % (A) 10 %; Neutrophils # (A) 2.7 k/uL (1.3-7.7); Neutrophils % (A) 65 %; Platelet Count 207 k/uL (150-450); RBC 3.21 m/uL (4.30-5.90); RDW 15.7 % (11.5-15.5); WBC 4.2 k/uL (3.8-10.6)
[2022-11-11 15:44] LABS: ALT 11 U/L (4-49); AST 38 U/L (17-59); African American GFR (CKD) 76 (>60 ml/min/1.73 sqM); Albumin 3.1 g/dL (3.5-5.0); Anion Gap 10 mmol/L; Blood Urea Nitrogen 20 mg/dL (9-20); Calcium 8.4 mg/dL (8.4-10.2); Carbon Dioxide 23 mmol/L (22-30); Chloride 103 mmol/L (98-107); Glucose 107 mg/dL (74-99); Non-African American GFR(CKD) 66 (>60 ml/min/1.73 sqM); Potassium 3.8 mmol/L (3.5-5.1); Sodium 136 mmol/L (137-145); Total Bilirubin 0.5 mg/dL (0.2-1.3); Total Protein 5.3 g/dL (6.3-8.2)
[2022-11-11 17:08] LABS: Alkaline Phosphatase 789 U/L (38-126)
[2022-11-11] MEDS: METOPROLOL SUCCINATE (ER) 25 MG TAB.ER.24H PO SCH (22:00)
[2022-11-12] MEDS: traMADol 50 MG TAB PO SCH ×4 (01:43→17:15)
--- NOTE | 2022-11-12 10:26 | P.CONS ---
History of Present Illness - Reason for Consult Consult date: 11/12/22 wound care - History of Present Illness This is an 87-year-old patient being seen on [address] by the wound care center for a stage II pressure ulcer to the right hip. Patient states that the ulceration has been there for a few months. He is unsure how it started. After discussion it appears that he may be pressing himself up against his arm chair. The ulceration is a stage II pressure ulcer to the right hip measuring approximately 1 x 0.8 x 0.1 cm Limited to skin breakdown. Granulation noted throughout the wound bed no tunneling or undermining noted. Minimal slough present. Patient also has a skin tear to the left lower extremity anterior aspect related from a fall. Multiple bruises noted. Patient's past medical history significant for dementia, BPH, prostate cancer, patient is a former smoker. Review Of Systems: Constitutional: No fever, no chills, no night sweats. No weight change. No weakness, fatigue or lethargy. No daytime sleepiness. Integumentary:reports wounds, no lesions. No rash or pruritus. No unusual bruising. No change in hair or nails. Physical exam: General Appearance: Alert, cooperative, no distress, appears stated age. Skin: See HPI all other Skin color, texture, tugor normal, no rashes or lesions. Neurologic: Alert oriented x3 Assessment: 1. Stage II pressure ulcer right hip 2. Nonhealing ulceration Limited to skin breakdown left lower extremity Plan: 1. Right hip ulceration: Apply triad and duodenum change daily. Left lower extremity skin tear. Apply triad and Tegaderm changes needed. Discussed with family the importance of utilizing air-filled cushion when sitting. Thank you for the consultation any questions contact the wound care center DNP note has been reviewed and discussed with Dr. Hay and the impression and plan of care has been directed as dictated. Past Medical History Past Medical History: Cancer, Dementia, Hypertension, Prostate Disorder Additional Past Medical History / Comment(s): prostate cancer History of Any Multi-Drug Resistant Organisms: None Reported Past Surgical History: Bowel Resection, Joint Replacement, Orthopedic Surgery, Prostate Surgery Additional Past Surgical History / Comment(s): bilateral hips Past Psychological History: No Psychological Hx Reported Smoking Status: Former smoker Past Alcohol Use History: None Reported Past Drug Use History: None Reported Medications and Allergies Home Medications Medication Instructions Recorded Confirmed Type ALPRAZolam [Xanax] 0.25 mg PO BID PRN 11/11/22 11/11/22 History Losartan/Hydrochlorothiazide 1 tab PO DAILY 11/11/22 11/11/22 History [Losartan-Hctz 100-12.5 mg Tab] Metoprolol Succinate (ER) [Toprol 25 mg PO HS 11/11/22 11/11/22 History Xl] traMADol HCL 25 mg PO Q6H 11/11/22 11/11/22 History Allergies Allergy/AdvReac Type Severity Reaction Status Date / Time No Known Allergies Allergy Verified 11/11/22 15:02 Physical Exam Vitals: Vital Signs Temp Pulse Pulse Resp BP BP Pulse Ox 11/12/22 08:00 98.2 F 94 17 100/64 11/11/22 20:10 98.3 F 84 18 111/66 93 L 11/11/22 18:30 60 16 105/60 99 11/11/22 17:00 78 16 110/68 98 11/11/22 16:00 75 16 110/60 98 11/11/22 13:51 97.5 F L 76 20 112/52 96 11/11/22 11:48 68 16 110/60 95 11/11/22 11:20 97.7 F 84 18 111/63 93 L Intake and Output 11/11/22 11/12/22 11/12/22 22:59 06:59 14:59 Other: Voiding Method Diaper Diaper # Voids 2 1 Weight 49.895 kg Results CBC & Chem 7: 11/11/22 15:04 11/11/22 15:04 Labs: Abnormal Lab Results - Last 24 Hours (Table) 11/11/22 11/11/22 Range/Units 15:04 15:04 RBC 3.21 L (4.30-5.90) m/uL Hgb 10.1 L (13.0-17.5) gm/dL Hct 29.4 L (39.0-53.0) % RDW 15.7 H (11.5-15.5) % Lymphocytes # 0.9 L (1.0-4.8) k/uL Sodium 136 L (137-145) mmol/L Glucose 107 H (74-99) mg/dL Alkaline Phosphatase 789 H (38-126) U/L Total Protein 5.3 L (6.3-8.2) g/dL Albumin 3.1 L (3.5-5.0) g/dL Assessment and Plan (1) Stage II pressure ulcer of right hip Current Visit: Yes Status: Acute Code(s): L89.212 - PRESSURE ULCER OF RIGHT HIP, STAGE 2 SNOMED Code(s): 57042551302198 (2) Non-pressure chronic ulcer of other part of left lower leg limited to breakdown of skin Current Visit: Yes Status: Acute Code(s): L97.821 - NON-PRS CHR ULCER OTH PRT L LOW LEG LIMITED TO BRKDWN SKIN SNOMED Code(s): 76244919013234163
[2022-11-12 11:11] LABS: Basophils # (A) 0.02 X 10*3/uL (0.00-0.10); Basophils % (A) 0.6 %; Eosinophils # (A) 0.07 X 10*3/uL (0.04-0.35); HCT 24.7 % (39.6-50.0); HGB 8.1 d/dL (13.0-17.0); Lymphocytes # (A) 0.76 X 10*3/uL (0.90-5.00); Lymphocytes % (A) 21.8 %; MCH 29.8 pg (27.0-32.0); MCHC 32.8 d/dL (32.0-37.0); MCV 90.8 FL (80.0-97.0); Monocytes # (A) 0.44 X 10*3/uL (0.20-1.00); Monocytes % (A) 12.6 %; NRBC Per 100 WBC 0 X 10*3/uL (0.00-0.01); Neutrophils # (A) 2.17 X 10*3/uL (1.80-7.70); Neutrophils % (A) 62.1 %; Platelet Count 187 X 10*3/uL (140-440); RBC 2.72 X 10*6/uL (4.40-5.60); RDW 15.7 % (11.5-14.5); WBC 3.49 X 10*3/uL (4.50-10.00)
[2022-11-12 12:14] VITALS: BMI 17.7
[2022-11-12] MEDS: HYDROPHILIC CREAM 180 GM TUBE TOPICAL SCH (12:14)
[2022-11-12] MEDS ORDERED: HYDROcodone/APAP 5-325MG 1 EACH TAB PO PRN (13:13)
[2022-11-12] MEDS ORDERED: ACETAMINOPHEN TAB 500 MG TAB PO PRN (13:13)
[2022-11-12] MEDS: PANTOPRAZOLE 40 MG TABLET PO SCH (14:01)
[2022-11-12 14:08] LABS: Blood Urea Nitrogen 15.5 mg/dL (9.0-27.0); Calcium 8.3 mg/dL (8.7-10.3); Carbon Dioxide 23.7 mmol/L (21.6-31.8); Chloride 104 mmol/L (96-109); Glucose 83 mg/dL (70-110); Potassium 3.9 mmol/L (3.5-5.5); Sodium 138 mmol/L (135-145)
[2022-11-12] MEDS: HEPARIN SODIUM,PORCINE 5,000 UNIT/ML 1 ML VIAL SQ SCH (20:21)
[2022-11-12] MEDS: ALPRAZolam 0.25 MG TAB PO PRN (20:21)
[2022-11-12] MEDS: METOPROLOL SUCCINATE (ER) 25 MG TAB.ER.24H PO SCH (20:21)
--- NOTE | 2022-11-12 21:05 | HP ---
HISTORY AND PHYSICAL CHIEF COMPLAINT: Fall and right hip pain. HISTORY OF PRESENT ILLNESS: This is an 87-year-old gentleman with a past medical history of multiple medical issues including dementia, hypertension, had a fall and the patient is complaining of right hip pain. The patient has seen the orthopedic surgery, the patient is unable to get up. The hip x-rays showed diffuse bony metastatic disease, but no acute fracture. There is no history of any fever, rigors, or chills. The patient is confused. PAST MEDICAL HISTORY: Reviewed include dementia, hypertension, prostate disorder, and cancer. HOME MEDICATIONS: Reviewed include Xanax, doses and rest of medications reviewed. ALLERGIES: None. FAMILY HISTORY: No history of heart disease or strokes in the family. SOCIAL HISTORY: Previous history of smoking. REVIEW OF SYSTEMS: Fourteen-point review is negative except as mentioned earlier. PHYSICAL EXAMINATION: VITAL SIGNS: Pulse 94, blood pressure 100/60, respirations 16. HEENT: Conjunctivae normal. Oral mucosa moist. NECK: No jugular venous distention. No carotid bruit. CARDIOVASCULAR: S1, S2 muffled. RESPIRATION: Diminished at the bases. ABDOMEN: Soft, nontender. LEGS: Movement slightly painful in the right leg. NERVOUS SYSTEM: No focal deficits. SKIN: Some excoriations present on the right hip. JOINTS: No active deforming arthropathy. LABORATORY DATA: Reviewed, x-rays reviewed personally. ASSESSMENT: 1. Fall and right hip pain. 2. Stage II pressure ulcer right hip. 3. Nonhealing ulceration to the left lower extremity. 4. Gait dysfunction. 5. Anemia. 6. Dementia. 7. Hypertension. 8. History of prostate cancer with mets. RECOMMENDATIONS: This 87-year-old gentleman presented with multiple complex medical issues. We will monitor the patient closely. Pain management. Follow closely with multiple consultants. Hospice is being consulted and discussed with the family, guarded prognosis. Further recommendations to follow. See orders for details. MMODL / IJN: [id number] /
[2022-11-13] MEDS: traMADol 50 MG TAB PO SCH ×5 (01:15→23:23)
[2022-11-13] MEDS: PANTOPRAZOLE 40 MG TABLET PO SCH (09:41)
[2022-11-13] MEDS: HYDROPHILIC CREAM 180 GM TUBE TOPICAL SCH (09:41)
[2022-11-13] MEDS: HEPARIN SODIUM,PORCINE 5,000 UNIT/ML 1 ML VIAL SQ SCH ×2 (09:42→20:33)
[2022-11-13] MEDS: THIAMINE 100 MG TAB PO SCH (17:08)
[2022-11-13] MEDS: METOPROLOL SUCCINATE (ER) 25 MG TAB.ER.24H PO SCH (20:33)
--- NOTE | 2022-11-13 21:56 | PN ---
PROGRESS NOTE DATE OF SERVICE: 11/13/2022 SUBJECTIVE: This is an 87-year-old gentleman, who was admitted with fall and right hip pain, also had some pressure ulcers. The patient is being closely monitored. The patient is able to ambulate with support. OBJECTIVE: VITAL SIGNS: Pulse is 84, blood pressure 100/66, respirations 20. CHEST: Clear to auscultation. CARDIOVASCULAR: S1, S2. ABDOMEN: Soft. Hip is slightly painful. LABORATORY DATA: Hemoglobin 8.1. The rest of the labs are noted. ASSESSMENT: 1. Fall and right hip pain. 2. Stage II pressure ulcer, right hip. 3. Nonhealing ulceration of the left lower extremity. 4. Gait dysfunction. 5. Anemia. 6. Dementia. 7. Hypertension. 8. Multiple medical issues. 9. No code, no CPR, no vent. RECOMMENDATIONS AND DISCUSSION: Recommend to continue current management and continue symptomatic treatment. Continue with pain management. Continue with DVT prophylaxis. Continue with empiric antibiotics and obtain the cultures. We will obtain Infectious Disease evaluation also. MMODL / IJN: [id number] /
[2022-11-14] MEDS: traMADol 50 MG TAB PO SCH ×4 (05:36→23:41)
[2022-11-14 08:16] LABS: Basophils % (A) 0 %; Eosinophils # (A) 0.1 k/uL (0-0.7); Eosinophils % (A) 2 %; HCT 27.5 % (39.0-53.0); HGB 9.1 gm/dL (13.0-17.5); Lymphocytes # (A) 0.8 k/uL (1.0-4.8); Lymphocytes % (A) 21 %; MCH 30.9 pg (25.0-35.0); MCHC 32.9 g/dL (31.0-37.0); MCV 93.7 fL (80.0-100.0); Mean Platelet Volume 7.1; Monocytes # (A) 0.3 k/uL (0-1.0); Monocytes % (A) 7 %; Neutrophils # (A) 2.4 k/uL (1.3-7.7); Neutrophils % (A) 66 %; Platelet Count 208 k/uL (150-450); RBC 2.94 m/uL (4.30-5.90); RDW 15.8 % (11.5-15.5); WBC 3.7 k/uL (3.8-10.6)
[2022-11-14 08:22] LABS: African American GFR (CKD) 90 (>60 ml/min/1.73 sqM); Anion Gap 3 mmol/L; Blood Urea Nitrogen 14 mg/dL (9-20); Calcium 7.8 mg/dL (8.4-10.2); Carbon Dioxide 25 mmol/L (22-30); Chloride 103 mmol/L (98-107); Glucose 90 mg/dL (74-99); Non-African American GFR(CKD) 78 (>60 ml/min/1.73 sqM); Sodium 131 mmol/L (137-145)
[2022-11-14] MEDS: THIAMINE 100 MG TAB PO SCH ×2 (09:53→15:52)
[2022-11-14] MEDS: HYDROPHILIC CREAM 180 GM TUBE TOPICAL SCH (09:53)
[2022-11-14] MEDS: PANTOPRAZOLE 40 MG TABLET PO SCH (09:53)
[2022-11-14] MEDS: HEPARIN SODIUM,PORCINE 5,000 UNIT/ML 1 ML VIAL SQ SCH ×2 (09:53→21:18)
--- NOTE | 2022-11-14 11:23 | P.GSCN ---
History of Present Illness Consult date: 11/14/22 History of present illness: The patient is an 87-year-old gentleman in the hospital with a hip pain and a decubitus ulcer on the right hip. There is question whether it back issues and x-rays identified metastatic cancer to the spine consistent with prostate cancer. The patient had a radical prostatectomy years ago by . He apparently had recurrent and metastatic disease and had been on intermittent hormonal therapy. Patient has not followed up in our office for a while. He was seen . The family has elected not to do anything further at this point in time with regard to his prostate cancer. Question is in urine retention during this hospitalization and we are asked to place catheters and nursing staff was unable to do so. The history is taken from the is a patient has Alzheimer's. There is a history of incontinence. Review of Systems ROS unobtainable: due to mental status Past Medical History Past Medical History: Cancer, Dementia, Hypertension, Prostate Disorder Additional Past Medical History / Comment(s): prostate cancer History of Any Multi-Drug Resistant Organisms: None Reported Past Surgical History: Bowel Resection, Joint Replacement, Orthopedic Surgery, Prostate Surgery Additional Past Surgical History / Comment(s): bilateral hips Past Psychological History: No Psychological Hx Reported Smoking Status: Former smoker Past Alcohol Use History: None Reported Past Drug Use History: None Reported Medications and Allergies Home Medications Medication Instructions Recorded Confirmed Type ALPRAZolam [Xanax] 0.25 mg PO BID PRN 11/11/22 11/11/22 History Losartan/Hydrochlorothiazide 1 tab PO DAILY 11/11/22 11/11/22 History [Losartan-Hctz 100-12.5 mg Tab] Metoprolol Succinate (ER) [Toprol 25 mg PO HS 11/11/22 11/11/22 History Xl] traMADol HCL 25 mg PO Q6H 11/11/22 11/11/22 History Allergies Allergy/AdvReac Type Severity Reaction Status Date / Time No Known Allergies Allergy Verified 11/11/22 15:02 Surgical - Exam Vital Signs Temp Pulse Resp BP Pulse Ox 97.7 F 84 18 111/63 93 L 11/11/22 11:20 11/11/22 11:20 11/11/22 11:20 11/11/22 11:20 11/11/22 11:20 - General well developed, well nourished, no distress - Eyes normal ocular movement, no icteric - ENT no hearing loss, no congestion - Neck no masses, trachea midline - Respiratory normal respiratory effort, clear to auscultation - Abdomen Abdomen: soft, non tender, no guarding, no rigid, no rebound - Integumentary no rash, no abnormal pigmentation - Neurologic normal sensation, disoriented, confused, memory loss - Psychiatric oriented to person, speech is normal Results - Labs 11/14/22 07:43 11/14/22 07:43 Abnormal Lab Results - Last 24 Hours (Table) 11/14/22 11/14/22 Range/Units 07:43 07:43 WBC 3.7 L (3.8-10.6) k/uL RBC 2.94 L (4.30-5.90) m/uL Hgb 9.1 L (13.0-17.5) gm/dL Hct 27.5 L (39.0-53.0) % RDW 15.8 H (11.5-15.5) % Lymphocytes # 0.8 L (1.0-4.8) k/uL Sodium 131 L (137-145) mmol/L Calcium 7.8 L (8.4-10.2) mg/dL Diabetes panel 11/14/22 Range/Units 07:43 Sodium 131 L (137-145) mmol/L Potassium 4.0 (3.5-5.1) mmol/L Chloride 103 (98-107) mmol/L Carbon Dioxide 25 (22-30) mmol/L BUN 14 (9-20) mg/dL Creatinine 0.87 (0.66-1.25) mg/dL Glucose 90 (74-99) mg/dL Calcium 7.8 L (8.4-10.2) mg/dL Calcium panel 11/14/22 Range/Units 07:43 Calcium 7.8 L (8.4-10.2) mg/dL Pituitary panel 11/14/22 Range/Units 07:43 Sodium 131 L (137-145) mmol/L Potassium 4.0 (3.5-5.1) mmol/L Chloride 103 (98-107) mmol/L Carbon Dioxide 25 (22-30) mmol/L BUN 14 (9-20) mg/dL Creatinine 0.87 (0.66-1.25) mg/dL Glucose 90 (74-99) mg/dL Calcium 7.8 L (8.4-10.2) mg/dL Adrenal panel 11/14/22 Range/Units 07:43 Sodium 131 L (137-145) mmol/L Potassium 4.0 (3.5-5.1) mmol/L Chloride 103 (98-107) mmol/L Carbon Dioxide 25 (22-30) mmol/L BUN 14 (9-20) mg/dL Creatinine 0.87 (0.66-1.25) mg/dL Glucose 90 (74-99) mg/dL Calcium 7.8 L (8.4-10.2) mg/dL Assessment and Plan Assessment: Impression: Metastatic prostate cancer with urine retention. History of incontinence. Right hip to this ulcer. Recommendations: Catheter placement
--- NOTE | 2022-11-14 11:25 | P.PCN ---
Date of Procedure: 11/14/22 Preoperative Diagnosis: Urine retention status post radical prostatectomy 20 years ago Postoperative Diagnosis: Same Procedure(s) Performed: Difficult catheter placement Anesthesia: none Surgeon: Rusty Fowler Estimated Blood Loss (ml): 0 Pathology: none sent Indications for Procedure: The patient's in the hospital with hip problems. He has metastatic prostate cancer and the family elected not to treat at this point in time. He is in urine retention but does have incontinence also Description of Procedure: Patient is prepped and draped sterilely. Attempts at passing a 16-[place] Patiño catheter meet resistance in the deep bulbar urethra. I then pass a 14-[place] coud-tip catheter through bulb into the anastomosis and then into the bladder. The anastomosis is slightly tight. Her urine returned Impression difficult catheter placement due to previous urologic surgery. Recommendations: Catheter can be removed when he is felt medically stable and near discharge home if the family requests
[2022-11-14] MEDS: MULTIVITAMINS, THERA 1 EACH TAB PO SCH (12:09)
[2022-11-14] MEDS: FOLIC ACID 1 MG TAB PO SCH (12:09)
[2022-11-14] MEDS: METOPROLOL SUCCINATE (ER) 25 MG TAB.ER.24H PO SCH (21:18)
--- NOTE | 2022-11-14 22:11 | PN ---
PROGRESS NOTE DATE OF SERVICE: 11/14/2022 SUBJECTIVE: This 87-year-old gentleman, who was admitted after a fall and hip pain, also had stage II pressure ulcer. The patient also was evaluated by Urology today. No chest pain. No palpitations. No fever. OBJECTIVE: VITAL SIGNS: Pulse is 85, blood pressure ntd, respirations 16. CHEST: Clear to auscultation. CARDIOVASCULAR: S1, S2. ABDOMEN: Soft. Right hip pain present. LABORATORY DATA: WBC ntd, hemoglobin is 9.1. ASSESSMENT: 1. Fall and right hip pain. 2. Stage II pressure ulcer, right hip. 3. Nonhealing ulceration of the left lower extremity. 4. Metastatic prostate cancer. 5. Gait dysfunction. 6. Anemia. 7. Dementia. 8. Hypertension. 9. Multiple medical issues. 10.No code, no CPR, and no vent. RECOMMENDATIONS AND DISCUSSION: Recommended to _ monitor the patient closely. Continue the empiric antibiotics. Otherwise PT, OT evaluation. Possible ECF rehab. Guarded prognosis. Further recommendations to follow. MMODL / IJN: [id number] / MIGUEL
--- NOTE | 2022-11-14 23:26 | P.CONS ---
History of Present Illness - Reason for Consult Consult date: 11/14/22 wounds Requesting physician: Sesar Sin - Chief Complaint weakness and fall x few days - History of Present Illness Patient is a 87-year-old male with a past medical history significant for prostate cancer hypertension dementia patient presented to hospital 3 days ago for evaluation of fall the night before and the patient was complaining of weakness in the lower extremity patient complaining of weakness and did not hit his head or any loss of consciousness patient denies any headache or URI symptoms no chest pain shortness of breath or cough the patient did have a bone to the right hip area patient not very clear for how long he has however currently he did not have any symptoms referable to the right hip wound area and denies having any drainage from it patient was evaluated by the wound care nurse who is recommending Triad cream patient on presentation to the hospital was afebrile and no fever has been recorded subsequently patient did have a normal white count kidney function was normal liver enzymes are normal patient did have a hip pelvic area x-ray diffuse bony metastasis no acute fracture lumbar spine CT 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 No tachypnea or accessory muscle of respiration use. HEENT: Shows Pallor , no scleral icterus. Oral mucous membrane is dry. No pharyngeal erythema or thrush NECK: Trachea central, no thyromegaly. LUNGS: Unlabored breathing. Clear to auscultation anteriorly. No wheeze or crackle. HEART: S1, S2, regular rate and rhythm. No loud murmur ABDOMEN: Soft, no tenderness , EXTREMITIES: Right hip wound with minimal slough tissue no surrounding redness or drainage. SKIN: No rash, no masses palpable. NEUROLOGICAL: The patient is awake, alert, oriented x2, mood and affect normal. Past Medical History Past Medical History: Cancer, Dementia, Hypertension, Prostate Disorder Additional Past Medical History / Comment(s): prostate cancer History of Any Multi-Drug Resistant Organisms: None Reported Past Surgical History: Bowel Resection, Joint Replacement, Orthopedic Surgery, Prostate Surgery Additional Past Surgical History / Comment(s): bilateral hips Past Psychological History: No Psychological Hx Reported Smoking Status: Former smoker Past Alcohol Use History: None Reported Past Drug Use History: None Reported Medications and Allergies Home Medications Medication Instructions Recorded Confirmed Type ALPRAZolam [Xanax] 0.25 mg PO BID PRN 11/11/22 11/11/22 History Metoprolol Succinate (ER) [Toprol 25 mg PO HS 11/11/22 11/11/22 History XL] traMADol HCL 25 mg PO Q6H 11/11/22 11/11/22 History Acetaminophen Tab [Tylenol] 500 mg PO Q6HR PRN tab 11/16/22 Rx Folic Acid 1 mg PO DAILY@1200 tab 11/16/22 Rx Multivitamins, Thera [Multivitamin 1 each PO DAILY@1200 tab 11/16/22 Rx (formulary)] Thiamine [Vitamin B-1] 100 mg PO BID-W/MEALS tab 11/16/22 Rx Allergies Allergy/AdvReac Type Severity Reaction Status Date / Time No Known Allergies Allergy Verified 11/11/22 15:02 Physical Exam Vitals: Vital Signs Temp Pulse Resp BP Pulse Ox 11/14/22 08:50 85 16 11/14/22 07:31 97.9 F 85 16 105/59 92 L 11/14/22 05:34 97.7 F 81 16 115/46 94 L 11/13/22 18:50 97.6 F 82 18 116/72 94 L 11/13/22 16:25 103/67 11/13/22 12:20 97.9 F 83 16 90/48 95 Intake and Output 11/13/22 11/14/22 11/14/22 22:59 06:59 14:59 Output Total 300 260 Balance -300 -260 Output: Urine 300 Post Void Residual 260 Other: Voiding Method Diaper Diaper # Voids 1 1 # Bowel Movements 0 Results CBC & Chem 7: 11/14/22 07:43 11/14/22 07:43 Labs: Abnormal Lab Results - Last 24 Hours (Table) 11/14/22 11/14/22 Range/Units 07:43 07:43 WBC 3.7 L (3.8-10.6) k/uL RBC 2.94 L (4.30-5.90) m/uL Hgb 9.1 L (13.0-17.5) gm/dL Hct 27.5 L (39.0-53.0) % RDW 15.8 H (11.5-15.5) % Lymphocytes # 0.8 L (1.0-4.8) k/uL Sodium 131 L (137-145) mmol/L Calcium 7.8 L (8.4-10.2) mg/dL Assessment and Plan (1) Stage II pressure ulcer of right hip Status: Acute Code(s): L89.212 - PRESSURE ULCER OF RIGHT HIP, STAGE 2 SNOMED Code(s): 49780181037511 Plan: 1patient with right hip area wound which is more likely a stage II pressure ulcer, wound base with no slough tissue no surrounding redness patient not running any fever and white count normal clinically doubt cellulitis or wound infection 2-we will recommend local wound care with the dry Aquacel silver dressing keep the area dry and of the pressure dressing should be changed every 48 hours discontinue Triad cream 3-no need for systemic antibiotic therapy We will follow on clinical condition and cultures to further adjust medication if needed Thank you for this consultation we will follow the patient along with you Dictation was produced using [employer] dictation software. please excuse any grammatical, word or spelling errors. Time with Patient: Greater than 30
[2022-11-15 00:06] LABS: Appearance,Urine Clear (Clear); Bacteria,Urine Rare /hpf; Bilirubin,Urine Negative (Negative); Blood,Urine Trace (Negative); Color,Urine Yellow; Glucose,Urine (UA) Negative (Negative); Ketones,Urine 1+ (Negative); Leukocyte Esterase,Urine Moderate (Negative); Mucus,Urine Rare /hpf; Nitrite,Urine Negative (Negative); PH, Urine 5.5 (5.0-8.0); Protein,Urine Trace (Negative); RBC,Urine 42 /hpf (0-5); Specific Gravity,Urine 1.033 (1.001-1.035); Squamous Epithelial Cell,Urine <1 /hpf (0-4); Urobilinogen,Urine <2.0 mg/dL (<2.0); WBC,Urine 12 /hpf (0-5)
[2022-11-15] MEDS: traMADol 50 MG TAB PO SCH ×4 (06:25→23:37)
[2022-11-15] MEDS: PANTOPRAZOLE 40 MG TABLET PO SCH (08:04)
[2022-11-15] MEDS: THIAMINE 100 MG TAB PO SCH ×2 (08:04→18:17)
[2022-11-15] MEDS: HEPARIN SODIUM,PORCINE 5,000 UNIT/ML 1 ML VIAL SQ SCH ×2 (08:04→21:21)
[2022-11-15] MEDS: HYDROPHILIC CREAM 180 GM TUBE TOPICAL SCH (08:05)
[2022-11-15] MEDS: FOLIC ACID 1 MG TAB PO SCH (11:48)
[2022-11-15] MEDS: MULTIVITAMINS, THERA 1 EACH TAB PO SCH (11:48)
[2022-11-15] MEDS: METOPROLOL SUCCINATE (ER) 25 MG TAB.ER.24H PO SCH (21:21)
[2022-11-15] MEDS: ALPRAZolam 0.25 MG TAB PO PRN (21:21)
[2022-11-16] MEDS: traMADol 50 MG TAB PO SCH ×2 (05:56→11:47)
[2022-11-16] MEDS: THIAMINE 100 MG TAB PO SCH (09:09)
[2022-11-16] MEDS: HEPARIN SODIUM,PORCINE 5,000 UNIT/ML 1 ML VIAL SQ SCH (09:09)
[2022-11-16] MEDS: HYDROPHILIC CREAM 180 GM TUBE TOPICAL SCH (09:09)
[2022-11-16] MEDS: PANTOPRAZOLE 40 MG TABLET PO SCH (09:09)
[2022-11-16 11:41] VITALS: BP 99/55; PULSE 85; RESP 16; TEMP 97.6
[2022-11-16] MEDS: FOLIC ACID 1 MG TAB PO SCH (11:47)
[2022-11-16] MEDS: MULTIVITAMINS, THERA 1 EACH TAB PO SCH (11:47)
--- NOTE | 2022-11-16 12:05 | P.PN ---
Subjective Progress Note Date: 11/15/22 Principal diagnosis: Right hip wound and UTI Patient is a 87-year-old male with a past medical history significant for prostate cancer hypertension dementia patient presented to hospital for fall and weakness, patient did have a wound to the right hip area and also have urinary retention requiring Patiño catheter placement by urology On today's evaluation that is 11/15/2022, the patient is afebrile he is breathing comfortably on room air currently sleepy in no distress vomiting diarrhea or any other changes reported by the family at the bedside No labs were drawn today patient did have a positive UA with moderate leukocyte esterase and 12 WBC Objective - Vital Signs Vital signs: Vital Signs Temp 98.4 F 11/15/22 07:02 Pulse 71 11/15/22 07:02 Resp 17 11/15/22 07:02 BP 106/55 11/15/22 07:02 Pulse Ox 94 L 11/15/22 07:02 FiO2 Intake & Output 11/14/22 11/15/22 11/15/22 18:59 06:59 18:59 Output Total 560 200 Balance -560 -200 Output: Urine 300 200 Post Void Residual 260 Other: Voiding Method Diaper Indwelling Catheter - Labs CBC & Chem 7: 11/14/22 07:43 11/14/22 07:43 Labs: Abnormal Lab Results - Last 24 Hours (Table) 11/14/22 Range/Units 23:40 Urine Protein Trace H (Negative) Urine Ketones 1+ H (Negative) Urine Blood Trace H (Negative) Ur Leukocyte Esterase Moderate H (Negative) Urine RBC 42 H (0-5) /hpf Urine WBC 12 H (0-5) /hpf Urine Bacteria Rare H (None) /hpf Urine Mucus Rare H (None) /hpf Assessment and Plan (1) UTI (urinary tract infection) Current Visit: Yes Status: Acute Code(s): N39.0 - URINARY TRACT INFECTION, SITE NOT SPECIFIED SNOMED Code(s): 89913335 (2) Stage II pressure ulcer of right hip Current Visit: Yes Status: Acute Code(s): L89.212 - PRESSURE ULCER OF RIGHT HIP, STAGE 2 SNOMED Code(s): 80561353559729 Plan: 1patient with right hip area wound which is more likely a stage II pressure ulcer, wound base with no slough tissue no surrounding redness patient not running any fever and white count normal clinically doubt cellulitis or wound infection 2-local wound care with the dry Aquacel silver dressing keep the area dry and of the pressure dressing should be changed every 48 hours 3-patient did have a urinary retention requiring Patiño catheter placement did have a positive UA concerning for urinary tract infection we'll switch antibiotics to Rocephin while waiting for the culture finalized Dictation was produced using [employer] dictation software. please excuse any grammatical, word or spelling errors. Time with Patient: Less than 30
--- NOTE | 2022-11-16 12:06 | P.PN ---
Subjective Progress Note Date: 11/16/22 Principal diagnosis: Right hip wound and UTI Patient is a 87-year-old male with a past medical history significant for prostate cancer hypertension dementia patient presented to hospital for fall and weakness, patient did have a wound to the right hip area and also have urinary retention requiring Patiño catheter placement by urology On today's evaluation that is 11/16/2022, the patient, the patient remains to be afebrile the patient is breathing comfortably on room air, the patient denies having any chest pain shortness of breath or cough, patient denies abdominal pain and no nausea/vomiting /diarrhea, patient mentioned feeling better No labs are drawn today patient did have a positive UA with moderate leukocyte esterase and 12 WBC Objective - Vital Signs Vital signs: Vital Signs Temp 97.6 F 11/16/22 11:25 Pulse 85 11/16/22 11:25 Resp 16 11/16/22 11:25 BP 99/55 11/16/22 11:25 Pulse Ox 94 L 11/16/22 11:25 FiO2 Intake & Output 11/15/22 11/16/22 11/16/22 18:59 06:59 18:59 Output Total 200 200 Balance -200 -200 Weight 49.895 kg Output: Urine 200 200 Other: Voiding Method Indwelling Catheter Indwelling Catheter Indwelling Catheter - Exam GENERAL DESCRIPTION: An elderly male lying in bed in no distress RESPIRATORY SYSTEM: Unlabored breathing , decreased breath sounds at bases HEART: S1 S2 regular rate and rhythm , ABDOMEN: Soft , no tenderness EXTREMITIES: No edema feet - Labs CBC & Chem 7: 11/14/22 07:43 11/14/22 07:43 Labs: Microbiology - Last 24 Hours (Table) 11/14/22 23:40 Urine Culture - Final Urine,Voided Assessment and Plan (1) UTI (urinary tract infection) Current Visit: Yes Status: Acute Code(s): N39.0 - URINARY TRACT INFECTION, SITE NOT SPECIFIED SNOMED Code(s): 80339784 (2) Stage II pressure ulcer of right hip Current Visit: Yes Status: Acute Code(s): L89.212 - PRESSURE ULCER OF RIGHT HIP, STAGE 2 SNOMED Code(s): 52360097556380 Plan: 1patient with right hip area wound which is more likely a stage II pressure ulcer, wound base with no slough tissue no surrounding redness patient not runn ing any fever and white count normal clinically doubt cellulitis or wound infection 2-local wound care with the dry Aquacel silver dressing keep the area dry and of the pressure dressing should be changed every 48 hours 3-patient did have a urinary retention requiring Patiño catheter placement did h ave a positive UA concerning for urinary tract infection 4- we'll continue with Rocephin while waiting for the culture finalized and monitor clinical course closely Dictation was produced using [employer] dictation software. please excuse any grammatical, word or spelling errors. Time with Patient: Less than 30
== END 2022-11-16 12:27 | disposition hospice, inpatient (51) | DRG 593 ==
LOC: EC 10:36 → 5NMEDONC 15:05 → OBSVTOIN 11-13 15:18
PROVIDERS: ADMIT Internal Medicine; ATTEND Internal Medicine
DX: L89.212 Pressure ulcer of right hip, stage 2 (principal); C79.51 Secondary malignant neoplasm of bone; N39.0 Urinary tract infection, site not specified; L97.821 Non-pressure chronic ulcer of other part of left lower leg limited to breakdown of skin; M25.551 Pain in right hip; D64.9 Anemia, unspecified; F02.80 Dementia in other diseases classified elsewhere, unspecified severity, without behavioral disturbance, psychotic disturbance, mood disturbance, and anxiety; G30.9 Alzheimer's disease, unspecified; I10 Essential (primary) hypertension; Z96.643 Presence of artificial hip joint, bilateral; N40.1 Benign prostatic hyperplasia with lower urinary tract symptoms; R33.9 Retention of urine, unspecified; W19.XXXA Unspecified fall, initial encounter; Z66 Do not resuscitate; Z85.46 Personal history of malignant neoplasm of prostate; Z87.891 Personal history of nicotine dependence; Z90.79 Acquired absence of other genital organ(s)
CPT/HCPCS: 70450; 72125; 72131; 73502; 80048; 80053; 81001; 85025; 87086; 99285